=== PATIENT | male | born 1970 | race Two or more races ===

== ENCOUNTER 2016-11-14 12:24 | Outpatient (CLI) | payer MEDICARE, MEDICAID ==
[2016-11-14 19:04] LABS: BASOPHILS % (AUTO) 0.6 %; EOSINOPHILS # (AUTO) 0.5 10^3/uL (0.0-0.7); EOSINOPHILS % (AUTO) 6.1 %; HCT - HEMATOCRIT 44.6 % (42.0-52.0); HGB - HEMOGLOBIN 15.1 g/dL (14.0-18.0); LYMPHOCYTES # (AUTO) 2.6 10^3/uL (1.5-3.5); LYMPHOCYTES % (AUTO) 35.7 %; MEAN CORPUSCULAR HEMOGLOBIN 29.5 pg (27.0-31.0); MEAN CORPUSCULAR VOLUME 86.9 fL (80.0-94.0); MEAN PLATELET VOLUME 9.4 fL (7.4-11.4); MONOCYTES # (AUTO) 0.8 10^3/uL (0.0-1.0); MONOCYTES % (AUTO) 10.3 %; NEUTROPHILS # (AUTO) 3.5 10^3/uL (1.5-6.6); NEUTROPHILS % (AUTO) 47.3 %; RED BLOOD COUNT 5.13 10^6/uL (4.70-6.10); RED CELL DISTRIBUTION WIDTH 14.4 % (12.0-15.0); UNCORRECTED WHITE BLOOD COUNT 7.4 x10^3/uL; WHITE BLOOD COUNT 7.4 x10^3/uL (4.8-10.8)
[2016-11-14 19:21] LABS: ALBUMIN/GLOBULIN RATIO 1.4 (1.0-2.2); BUN - BLOOD UREA NITROGEN 17 mg/dL (6-20); CALCIUM 9.7 mg/dL (8.5-10.3); CARBON DIOXIDE - CO2 29 mmol/L (21-32); CHLORIDE 100 mmol/L (101-111); CHOL/HDL RATIO 3.4 (<5.0); CHOLESTEROL 221 mg/dL; CREATININE 1.3 mg/dL (0.6-1.2); GFR - MDRD 60 (>89); GLUCOSE 94 mg/dL (70-100); HDL CHOLESTEROL 65 mg/dL; LDL/HDL RATIO 2.2 (<3.6); POTASSIUM 4.8 mmol/L (3.5-5.0); SODIUM 137 mmol/L (135-145); TOTAL PROTEIN 7.7 g/dL (6.7-8.2); TRIGLYCERIDES 71 mg/dL; VLDL CHOLESTEROL 14 mg/dL
== END 2016-11-14 12:25 | disposition home or self-care (01) ==
LOC: LAB.N 12:24
PROVIDERS: ATTEND Family Medicine
DX: F17.210 Nicotine dependence, cigarettes, uncomplicated (principal); F20.9 Schizophrenia, unspecified; F31.9 Bipolar disorder, unspecified; Z79.899 Other long term (current) drug therapy
CPT/HCPCS: 36415; 80053; 80061; 84443; 85025

== ENCOUNTER 2018-02-24 12:43 | Emergency (ER) | payer MEDICARE, MEDICAID ==
[2018-02-24 12:55] VITALS: BP 135/89
[2018-02-24] MEDS ORDERED: IBUPROFEN 400 MG TABLET PO STA (14:13)
--- NOTE | 2018-02-24 14:16 | ED Physician Documentation ---
History of Present Illness - Stated complaint Stated Complaint: R KNEE PX-SWELLING - Chief complaint Chief Complaint: Ext Problem - Additonal information Additional information: hx from pt 47 male to ED with R knee pain and swelling no injury recalled no fever Review of Systems Constitutional: denies: Fever Musculoskeletal: reports: Joint pain PD PAST MEDICAL HISTORY - Past Medical History Cardiovascular: None Respiratory: None Endocrine/Autoimmune: None GI: GERD Psych: Bipolar disorder, Schizophrenia - Past Surgical History Past Surgical History: No - Present Medications Home Medications: Ambulatory Orders Medication Instructions Recorded Confirmed lamoTRIgine [LaMICtal] 25 mg PO DAILY 03/09/13 01/29/16 Aripiprazole [Abilify] 10 mg PO 03/22/13 03/22/13 raNITIdine [Zantac] 150 mg PO DAILY 01/29/16 01/29/16 Ibuprofen [Motrin] 400 mg PO Q6H PRN #20 tablet 02/24/18 - Allergies Allergies/Adverse Reactions: Allergies Allergy/AdvReac Type Severity Reaction Status Date / Time No Known Drug Allergies Allergy Verified 02/24/18 12:51 - Social History Does the pt smoke?: No Smoking Status: Never smoker Does the pt drink ETOH?: No Does the pt have substance abuse?: No - Immunizations Immunizations are current?: No Immunizations: TDAP >10years/unknown - POLST Patient has POLST: No PD ED PE NORMAL - Vitals Vital signs reviewed: Yes - Cardiac Cardiac: RRR - Respiratory Respiratory: No respiratory distress, Clear bilaterally - Abdomen Abdomen: Non tender - Extremities Extremities: Other (R knee + swelling, no ACL MCL LCL laxity, no pop or catch with mensical testing, no cord and calf NT, not red or warm, MSV intact to foot) - Neuro Neuro: Alert and oriented X 3 Results - Vitals Vitals: Vital Signs - 24 hr 02/24/18 12:49 Temperature 36.4 C L Heart Rate 76 Respiratory 14 Rate Blood Pressure 135/89 H O2 Saturation 100 Oxygen O2 Source Room air - Rads (name of study) knee Radiology: See rad report (small effusion) PD MEDICAL DECISION MAKING - ED course ED course: exam not suggesting of septic joint or gout or DVT will xray to assess for effusion likely dc with NSAID SETH ice elev crutches Departure - Departure Disposition: 01 Home, Self Care Clinical Impression: Knee pain, right Qualifiers: Chronicity: acute Qualified Code(s): M25.561 - Pain in right knee Condition: Good Instructions: ED Knee Pain UKO Follow-Up: Rizwan Kenney MD [Primary Care Provider] - Prescriptions: Ibuprofen [Motrin] 400 mg PO Q6H PRN #20 tablet PRN Reason: Pain Comments: Your history and exam do not suggest a knee infection, gout, or a blood clot. The xray results are not back yet but you can call me in about an hour at Recommend you can go home with motrin for pain and inflammation, and SETH wrap for support, ice for 20 minutes at a time 3 X a day and crutches as needed to decrease weight bearing stress Return if worse Discharge Date/Time: 02/24/18 15:03
--- NOTE | 2018-02-24 15:17 | XRAY Report ---
Reason: knee pain and swelling Procedure Date: 02/24/2018 Accession Number: [id number] / [id number] Procedure: XR - Knee 4 View RT CPT Code: FULL RESULT: EXAM: RIGHT KNEE RADIOGRAPHY EXAM DATE: 02/24/2018 02:29 PM. CLINICAL HISTORY: Knee pain and swelling since yesterday. COMPARISON: None. TECHNIQUE: 4 views. FINDINGS: Bones: Normal. No fractures or bone lesions. Joints: Small effusion. Normal caliber compartments without bony reactive changes. Bones in anatomic alignment. Soft Tissues: Normal. No soft tissue swelling. IMPRESSION: Small effusion. RADIA
== END 2018-02-24 15:03 | disposition home or self-care (01) ==
LOC: ED 12:43
DX: M25.561 Pain in right knee (principal); M25.461 Effusion, right knee
CPT/HCPCS: 99282; 99283

== ENCOUNTER 2018-05-25 08:00 | Outpatient (CLI) | payer MEDICARE, MEDICAID ==
[2018-05-25 13:51] LABS: CALCIUM 9.3 mg/dL (8.5-10.3); CREATININE 1.2 mg/dL (0.6-1.2)
[2018-05-25 14:07] LABS: PSA FREE 0.031 ng/mL (0.16-2.81)
[2018-05-25 14:08] LABS: PSA TOTAL 0.221 ng/mL (0.000-2.000)
== END 2018-05-25 23:59 | disposition home or self-care (01) ==
LOC: LAB.N 08:00
PROVIDERS: ATTEND Physician Assistant Medical
DX: R35.0 Frequency of micturition (principal)
CPT/HCPCS: 36415; 80048; 84153; 84154

== ENCOUNTER 2018-07-07 08:00 | Outpatient (CLI) | payer MEDICARE, MEDICAID ==
[2018-07-07 19:24] LABS: CHOLESTEROL 216 mg/dL; HDL CHOLESTEROL 72 mg/dL; LDL CHOLESTEROL,CALCULATED 134 mg/dL; LDL/HDL RATIO 1.9 (<3.6); VLDL CHOLESTEROL 10 mg/dL
== END 2018-07-07 08:01 | disposition home or self-care (01) ==
LOC: LAB.N 08:00
PROVIDERS: ATTEND Physician Assistant Medical
DX: E78.5 Hyperlipidemia, unspecified (principal)
CPT/HCPCS: 36415; 80061; 83721

== ENCOUNTER 2018-11-06 12:57 | Outpatient (CLI) | payer MEDICARE, MEDICAID | END 2018-11-06 12:58 | disposition home or self-care (01) | LOC: RT 12:57 | PROVIDERS: ATTEND Physician Assistant Medical | DX: R06.2 Wheezing (principal); R06.00 Dyspnea, unspecified | CPT/HCPCS: 94010 ==

== ENCOUNTER 2018-12-21 09:11 | Outpatient (CLI) | payer MEDICARE, MEDICAID ==
[2018-12-21 12:34] LABS: CHOL/HDL RATIO 2.6 (<5.0); CHOLESTEROL 208 mg/dL; HDL CHOLESTEROL 79 mg/dL; LDL CHOLESTEROL,CALCULATED 113 mg/dL; LDL/HDL RATIO 1.4 (<3.6); VLDL CHOLESTEROL 16 mg/dL
== END 2018-12-21 23:59 | disposition home or self-care (01) ==
LOC: LAB.N 09:11
PROVIDERS: ATTEND Physician Assistant Medical
DX: E78.5 Hyperlipidemia, unspecified (principal)
CPT/HCPCS: 36415; 80061; 83721

== ENCOUNTER 2019-11-15 08:00 | Outpatient (CLI) | payer MEDICARE, MEDICAID | END 2019-11-15 23:59 | disposition home or self-care (01) | LOC: LAB.WCP 08:00 | PROVIDERS: ATTEND Nurse Practitioner Family | DX: R39.11 Hesitancy of micturition (principal) | CPT/HCPCS: 36415; 84153 ==

== ENCOUNTER 2019-12-21 08:50 | Outpatient (CLI) | payer MEDICARE, MEDICAID ==
[2019-12-21 12:30] LABS: BASOPHILS # (AUTO) 0.1 10^3/uL (0.0-0.1); BASOPHILS % (AUTO) 0.8 %; EOSINOPHILS # (AUTO) 0.5 10^3/uL (0.0-0.7); EOSINOPHILS % (AUTO) 7.7 %; HGB - HEMOGLOBIN 13.5 g/dL (14.0-18.0); LYMPHOCYTES # (AUTO) 3.2 10^3/uL (1.5-3.5); LYMPHOCYTES % (AUTO) 48.7 %; MEAN CORPUSCULAR HEMOGLOBIN 29.5 pg (27.0-31.0); MEAN CORPUSCULAR HGB CONC 34.4 g/dL (32.0-36.0); MEAN CORPUSCULAR VOLUME 85.8 fL (80.0-94.0); MONOCYTES # (AUTO) 0.6 10^3/uL (0.0-1.0); MONOCYTES % (AUTO) 8.9 %; NEUTROPHILS # (AUTO) 2.2 10^3/uL (1.5-6.6); NEUTROPHILS % (AUTO) 33.7 %; PLT - PLATELET COUNT 280 10^3/uL (130-450); RED BLOOD COUNT 4.58 10^6/uL (4.70-6.10); RED CELL DISTRIBUTION WIDTH 13.3 % (12.0-15.0); WHITE BLOOD COUNT 6.6 x10^3/uL (4.8-10.8)
[2019-12-21 12:34] LABS: ALBUMIN 3.9 g/dL (3.2-5.5); ALBUMIN/GLOBULIN RATIO 1.4 (1.0-2.2); ALKALINE PHOSPHATASE 39 IU/L (42-121); ALT ALANINE AMINOTRANSFERASE 20 IU/L (10-60); AST ASPARTATE AMINOTRANSFERASE 15 IU/L (10-42); BILIRUBIN,TOTAL 0.9 mg/dL (0.2-1.0); BUN - BLOOD UREA NITROGEN 13 mg/dL (6-20); CALCIUM 9.7 mg/dL (8.5-10.3); CARBON DIOXIDE - CO2 30 mmol/L (21-32); CHLORIDE 103 mmol/L (101-111); CHOLESTEROL 188 mg/dL; CREATININE 1.2 mg/dL (0.6-1.2); GLUCOSE 94 mg/dL (70-100); HDL CHOLESTEROL 63 mg/dL; LDL CHOLESTEROL,CALCULATED 109 mg/dL; LDL/HDL RATIO 1.7 (<3.6); SODIUM 140 mmol/L (135-145); TOTAL PROTEIN 6.7 g/dL (6.7-8.2); VLDL CHOLESTEROL 16 mg/dL
== END 2019-12-21 23:59 | disposition home or self-care (01) ==
LOC: LAB.WCP 08:50
PROVIDERS: ATTEND Nurse Practitioner Family
DX: I10 Essential (primary) hypertension (principal); J44.9 Chronic obstructive pulmonary disease, unspecified; E78.5 Hyperlipidemia, unspecified; Z79.899 Other long term (current) drug therapy
CPT/HCPCS: 36415; 80053; 80061; 83721; 84443; 85025

== ENCOUNTER 2020-12-22 08:00 | Outpatient (CLI) | payer MEDICARE, MEDICAID ==
[2020-12-22 12:09] LABS: BASOPHILS # (AUTO) 0.1 10^3/uL (0.0-0.1); BASOPHILS % (AUTO) 0.8 %; EOSINOPHILS # (AUTO) 0.4 10^3/uL (0.0-0.7); EOSINOPHILS % (AUTO) 5.9 %; HCT - HEMATOCRIT 41.6 % (42.0-52.0); HGB - HEMOGLOBIN 14.7 g/dL (14.0-18.0); LYMPHOCYTES # (AUTO) 2.7 10^3/uL (1.5-3.5); LYMPHOCYTES % (AUTO) 41.2 %; MEAN CORPUSCULAR HEMOGLOBIN 30.2 pg (27.0-31.0); MEAN CORPUSCULAR HGB CONC 35.3 g/dL (32.0-36.0); MEAN CORPUSCULAR VOLUME 85.4 fL (80.0-94.0); MEAN PLATELET VOLUME 11.2 fL (7.4-11.4); MONOCYTES # (AUTO) 0.6 10^3/uL (0.0-1.0); MONOCYTES % (AUTO) 8.6 %; NEUTROPHILS # (AUTO) 2.9 10^3/uL (1.5-6.6); NEUTROPHILS % (AUTO) 43.2 %; PLT - PLATELET COUNT 285 10^3/uL (130-450); RED BLOOD COUNT 4.87 10^6/uL (4.70-6.10); RED CELL DISTRIBUTION WIDTH 13.2 % (12.0-15.0); WHITE BLOOD COUNT 6.6 x10^3/uL (4.8-10.8)
[2020-12-22 12:26] LABS: ALBUMIN/GLOBULIN RATIO 1.3 (1.0-2.2); ALKALINE PHOSPHATASE 47 IU/L (42-121); ALT ALANINE AMINOTRANSFERASE 29 IU/L (10-60); AST ASPARTATE AMINOTRANSFERASE 21 IU/L (10-42); BILIRUBIN,TOTAL 0.5 mg/dL (0.2-1.0); BUN - BLOOD UREA NITROGEN 15 mg/dL (6-20); CALCIUM 9.3 mg/dL (8.5-10.3); CARBON DIOXIDE - CO2 28 mmol/L (21-32); CHLORIDE 99 mmol/L (101-111); CHOL/HDL RATIO 3.2 (<5.0); CHOLESTEROL 198 mg/dL; CREATININE 1.3 mg/dL (0.6-1.2); GFR - MDRD 59 (>89); GLUCOSE 98 mg/dL (70-100); HDL CHOLESTEROL 62 mg/dL; LDL CHOLESTEROL,CALCULATED 121 mg/dL; SODIUM 139 mmol/L (135-145); TOTAL PROTEIN 7.2 g/dL (6.7-8.2); TRIGLYCERIDES 74 mg/dL; VLDL CHOLESTEROL 15 mg/dL
[2020-12-22 12:39] LABS: THYROID STIMULATING HORMONE 2.69 uIU/mL (0.34-5.60)
== END 2020-12-22 23:59 | disposition home or self-care (01) ==
LOC: LAB.WCP 08:00
PROVIDERS: ATTEND Family Medicine
DX: I10 Essential (primary) hypertension (principal); E78.5 Hyperlipidemia, unspecified
CPT/HCPCS: 36415; 80053; 80061; 83721; 84443; 85025

== ENCOUNTER 2021-02-01 10:26 | Outpatient (CLI) | payer MEDICARE, MEDICAID ==
--- NOTE | 2021-02-01 13:15 | PROCEDURE REPORT ---
Hospitalist Procedure Note - Procedure Note Procedure Note: February 01, 2021 Service time: 11 AM Ordering provider Liza Irby Indication for test: Chest pain at rest Significant medical history: He is a 48-year-old white male who is fully in dependent, no disability. He bicycles to work 1 mile there. Will stop. Bicycle for the rest of the way. And repeat that on the way home from work. This is on a daily basis Friday through Friday. A year to a year and a half ago, he began having fleeting chest pain. It last less than a second. He describes it as a pressure-like sensation, occasionally sharp. Nonradiating. No nausea, diaphoresis, palpitations, left arm pain or jaw pain. There is no rhyme or reason to the pain. It can happen at rest, while bicycling, watching TV, standing cooking, etc. In addition to chest pain, he is finding himself more more short of breath with exertion over the last 2 to 3 years. For instance he used to be able to bike all the way to work without stopping. Now he has to stop after 1 mile. No orthopnea, edema, cough, chest congestion. He does endorse a significant history of reflux disease for decades for which he takes daily Tums. He states that years ago he used to take histamine blockers but was told that you can get "esophageal cancer from him" so he weaned himself off. But he has frequent indigestion, belching on a daily basis. Of note the patient has a muted affect. Flat. At times expressed annoyance at this entire process. From scheduling, to being reminded about it, to getting on a treadmill. He several times stated "it does not matter". When I asked him why it did not matter he tells me "that he might as well be , it does not matter". He tells me that if he on the treadmill it would not be "a bad thing". Cardiac risk factors: He smokes half a pack to three-quarter pack per day for the last 30 years. He states that previous primary care providers have told him that he needs to stop smoking. He states he has slight hypertension. Did try to take medications 4 to 6 months ago. But after a week he was so short of breath that he could not even walk across a room that he stopped taking the medication. He does not have d iabetes, hypertension, hyperlipidemia, or a family history of heart disease. He does have emphysema/asthma. Takes albuterol and Flovent for years. Diagnosed with COPD 3 years ago. Type of stress test: ETT with echocardiograph Procedure: Exercise treadmill test After signing informed consent, the patient underwent resting echo imaging and then performed treadmill exercise using a Tan protocol. The patient exercised for 3 minutes and 53 seconds and achieved a peak heart rate of 133 (77% predicted maximum heart rate for age) and an estimated workload of 5.68 METS. The test was terminated due to severe shortness of breath, hamstring pain, and back pain that occurred before achieving target heart rate. Rhythm during exercise: Sinus without any ectopy. Of note there is artifact and there is intermittent vertical spikes that go off of the EKG due to equipment. The factory focus technician did attempt to see if we could eliminate some of the spikes but they still came and went during exercise. Symptoms: Patient developed shortness of breath within 2 minutes of exercise with a level of severity to 16. No chest pain. No arm pain. He also developed severe hamstring pain. States that his legs were "burning", which is a new problem with exertion over the last few months. O2 sat was 94% at peak exercise. Peak blood pressure was 201/104. EKG at rest showed normal sinus rhythm with high voltage. Patient has a narrow AP diameter chest. Slight ST elevation in almost all leads with probable early repolarization pattern. EKG at peak stress showed upsloping ST elevation in almost all leads, but not meeting diagnostic criteria for ischemia. In recovery, heart rate returned to baseline within a minute and 30 seconds. However blood pressure was 242/96. Blood pressure came down to 193/95 at 3 minutes 30 seconds. Prior to stress, blood pressure at baseline was 134/94. Echo imaging performed at rest and with stress revealed Nondiagnostic study due to inadequate heart rate response and stopping due to hamstring pain. Normal chamber sizes and function with no evidence or prior infarction or ischemia in the low workload achieved. Pulmonary pressures could not be measured. See separate report dictated by cardiology for more detail. There was no ventricular hypertrophy noted and no elevated pulmonary pressures. Enma Fall MD, was present throughout the treadmill stress study and supervised it in its entirety. Summary: 1. Exercise tolerance reduced for age as evidenced by attainment of mets. 2. Abnormal EKG at rest with voltage criteria and diffuse ST elevation with repolarization changes. But not diagnostic for coronary disease. 3. Inadequate level of exercise achieved on this treadmill stress 4. Exaggerated blood pressure response to exercise 5. Ischemic changes by EKG were not seen at peak stress 5. Anhedonia and statements regarding possibility of being acceptable indicate possible level of depression. Conclusions: 1. Nondiagnostic Tan protocol stress test with nondiagnostic ST changes, they do not meet diagnostic criteria for ischemia. However this patient was not able to achieve peak heart rate. 2. Severe hypertensive response and shortness of breath with leg burning. I would recommend arterial brachial indices to evaluate for possible peripheral v ascular disease. 3. History of significant dyspepsia and reflux may indicate need for esophageal manometry and EGD. 4. Risk factors and severe hypertensive response should be followed up with nuclear medicine Lexiscan stress test.
== END 2021-02-01 10:27 | disposition home or self-care (01) ==
LOC: DI 10:26
PROVIDERS: ATTEND Family Medicine
DX: R07.9 Chest pain, unspecified (principal); I10 Essential (primary) hypertension; F17.210 Nicotine dependence, cigarettes, uncomplicated; J43.9 Emphysema, unspecified; R94.31 Abnormal electrocardiogram [ECG] [EKG]; R45.84 Anhedonia
CPT/HCPCS: 93016; 93017; 93018; 93350

== ENCOUNTER 2021-12-14 08:30 | Emergency (ER) | payer MEDICARE, MEDICAID ==
[2021-12-14 08:46] VITALS: BP 148/97
[2021-12-14] MEDS ORDERED: LIDOCAINE PATCH 5% TOP STA (09:01)
[2021-12-14] MEDS ORDERED: HYDROcod/ACETAM 5/325 MG TABLET PO STA (09:01)
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
== END 2021-12-14 09:30 | disposition home or self-care (01) ==
LOC: ED 08:30
DX: S39.012A Strain of muscle, fascia and tendon of lower back, initial encounter (principal); X50.9XXA Other and unspecified overexertion or strenuous movements or postures, initial encounter; Y93.89 Activity, other specified
CPT/HCPCS: 99282; 99283; A9270

== ENCOUNTER 2021-12-19 17:02 | Emergency (ER) | payer MEDICARE, MEDICAID ==
[2021-12-19] MEDS ORDERED: oxyCODONE 5 MG TABLET PO STA (17:52)
--- NOTE | 2021-12-19 17:53 | ED Physician Documentation ---
PD HPI BACK PAIN - Stated complaint Stated Complaint: BACK PX - Chief complaint Chief Complaint: Back Pain - History obtained from History obtained from: Patient - Additional information Additional information: 51-year-old gentleman seen here couple weeks ago by my partner for sciatica. Now pain is over his kidneys and he worries abotu kidney problem. Pain does worsen if he bends over and twists. There are no urinary complaints such as hematuria or frequency or urgency. He denies weakness, numbness, tingling in the legs or saddle anesthesia. No incontinence or fevers. Review of Systems Constitutional: reports: Reviewed and negative Eyes: reports: Reviewed and negative Ears: reports: Reviewed and negative Cardiac: reports: Reviewed and negative Respiratory: reports: Reviewed and negative PD PAST MEDICAL HISTORY - Past Medical History Past Medical History: Yes Cardiovascular: Coronary artery disease Respiratory: None Neuro: None Endocrine/Autoimmune: None GI: GERD : None HEENT: None Psych: Bipolar disorder, Schizophrenia Musculoskeletal: None Derm: None - Past Surgical History Past Surgical History: No - Present Medications Home Medications: Ambulatory Orders Medication Instructions Recorded Confirmed lamoTRIgine [LaMICtal] 25 mg PO DAILY 03/09/13 12/19/21 Aripiprazole [Abilify] 10 mg PO DAILY 03/22/13 12/19/21 Ibuprofen [Motrin] 400 mg PO Q6H PRN #20 tablet 02/24/18 12/19/21 Acyclovir 400 mg PO DAILY 12/19/21 12/19/21 Ibuprofen [Motrin] 600 mg PO Q6HR PRN 12/19/21 12/19/21 Oxycodone HCl/Acetaminophen 1 - 2 each PO Q6H PRN #14 tablet 12/19/21 [Percocet 5-325 mg Tablet] lamoTRIgine [Lamictal Xr] 100 mg PO DAILY PM 12/19/21 12/19/21 - Allergies Allergies/Adverse Reactions: Allergies Allergy/AdvReac Type Severity Reaction Status Date / Time No Known Drug Allergies Allergy Verified 12/19/21 17:20 - Social History Does the pt smoke?: No Smoking Status: Never smoker Does the pt drink ETOH?: No Does the pt have substance abuse?: No - Immunizations Immunizations are current?: No Immunizations: TDAP >10years/unknown - POLST Patient has POLST: No PD ED PE NORMAL - Vitals Vital signs reviewed: Yes - General General: Alert and oriented X 3, No acute distress - Back Back: Other (Muscular tenderness of the paralumbar muscles bilaterally without midline spinal tenderness.) - Extremities Extremities: Other (The patient has equal and normal Achilles and patellar reflexes bilaterally. Normal sensation in all areas of the legs. Patient denies saddle anesthesia. Normal strength in flexion-extension at the ankles, knees, and flexion of the hips.) - Neuro Neuro: Alert and oriented X 3, Normal speech Results - Vitals Vitals: Vital Signs - 24 hr 12/19/21 12/19/21 17:15 19:12 Temperature 36.5 C 36.5 C Heart Rate 99 94 Respiratory 16 16 Rate Blood Pressure 146/111 H 140/78 H O2 Saturation 100 98 Oxygen O2 Source Room air - Labs Labs: Laboratory Tests 12/19/21 18:37 Urine Color YELLOW Urine Clarity CLEAR Urine pH 6.0 Ur Specific [place] >=1.030 H Urine Protein NEGATIVE Urine Glucose (UA) NEGATIVE Urine Ketones NEGATIVE Urine Occult Blood NEGATIVE Urine Nitrite NEGATIVE Urine Bilirubin NEGATIVE Urine Urobilinogen 0.2 (NORMAL) Ur Leukocyte Esterase NEGATIVE Ur Microscopic Review NOT INDICATED Urine Culture Comments NOT INDICATED PD MEDICAL DECISION MAKING - ED course ED course: 51-year-old with what seems like muscular back pain. He was specifically con cerned about his kidneys and urinalysis was done without pertinent positive findings i.e., no blood or infection. This patient has seemingly uncomplicated musculoskeletal back pain. The patient has no "red flags." Specifically denies IV drug use, fevers, incontinence, saddle anesthesia. Spinal epidural abscess was considered, given that the patient has no fever, is not diabetic, has no spinal tenderness, does not use IV drugs, and has no bilateral neurologic symptoms, the diagnosis of spinal epidural abscess is considered exceedingly unlikely. Departure - Departure Disposition: 01 Home, Self Care Clinical Impression: Back pain Condition: Good Instructions: ED Low Back Pain Injury Prescriptions: Oxycodone HCl/Acetaminophen [Percocet 5-325 mg Tablet] 1 - 2 each PO Q6H PRN #14 tablet PRN Reason: pain Comments: Your urine is normal without evidence of kidney disease. I sent your prescription electronically to [facility] in [place]. Call your doctor to arrange a follow-up appointment, make the next available appointment. In the interim, return anytime if worse or if new symptoms develop. I am prescribing a short course of narcotic pain medication for you. These are potentially dangerous and addictive medications that should be used carefully. These medications may constipate you. Take an joic-mbe-nuxkwue stool softener (docusate) twice daily with plenty of water while taking these medications. If you go 24 hours without a bowel movement, take caxp-cca-ihzqoxn miralax, per package instructions. Do not drink or drive while taking these medications. If you received narcotic or sedating medications while in the emergency department, do not drive for 24 hours. Store this medication in a safe, secure place and out of reach of children. It is a violation of federal law to give or sell this medication to another person or to use in a manner other than prescribed. The ED will not refill narcotic prescriptions, including prescriptions lost or stolen. To dispose of unwanted medications: 1. [facility] at [address] [facility] in [place] has a medication drop box. They accept prescription medications (in pill form) Friday through Friday 9:00 a.m. to 5:00 p.m. 2. The [facility] accepts prescription medications (in pill form only) for disposal year round. Call for more information. 3. Contact the [facility] for the next [facility] sponsored prescription drug collection event. , [phone], or [phone]; Note that many narcotic pain relievers also contain Tylenol/acetaminophen. Please ensure that your total dose of acetaminophen from all sources does not exceed 3 g (3000 mg) per day. Discharge Date/Time: 12/19/21 19:13
[2021-12-19 18:48] LABS: BILIRUBIN,URINE NEGATIVE (NEGATIVE); GLUCOSE, URINE (UA) NEGATIVE (NEGATIVE); KETONES,URINE (UA) NEGATIVE (NEGATIVE); LEUKOCYTE ESTERASE, URINE NEGATIVE (NEGATIVE); NITRITE,URINE NEGATIVE (NEGATIVE); OCCULT BLOOD,URINE NEGATIVE (NEGATIVE); PROTEIN,URINE NEGATIVE (NEGATIVE); UROBILINOGEN,URINE 0.2 (NORMAL) E.U./dL (NORMAL)
[2021-12-19 18:52] LABS: CLARITY,URINE CLEAR (CLEAR)
[2021-12-19 19:13] VITALS: BP 140/78
== END 2021-12-19 19:13 | disposition home or self-care (01) ==
LOC: ED 17:02
DX: M54.50 Low back pain, unspecified (principal)
CPT/HCPCS: 81003; 99283; A9270; 81001; 87086

== ENCOUNTER 2022-10-07 08:10 | Outpatient (CLI) | payer MEDICARE, MEDICAID ==
[2022-10-07 12:43] LABS: BASOPHILS # (AUTO) 0.1 10^3/uL (0.0-0.1); BASOPHILS % (AUTO) 0.9 %; EOSINOPHILS # (AUTO) 0.5 10^3/uL (0.0-0.7); EOSINOPHILS % (AUTO) 8.2 %; HCT - HEMATOCRIT 41.1 % (42.0-52.0); HGB - HEMOGLOBIN 14.3 g/dL (14.0-18.0); LYMPHOCYTES # (AUTO) 2.6 10^3/uL (1.5-3.5); LYMPHOCYTES % (AUTO) 40.2 %; MEAN CORPUSCULAR HEMOGLOBIN 29.8 pg (27.0-31.0); MEAN CORPUSCULAR HGB CONC 34.8 g/dL (32.0-36.0); MEAN CORPUSCULAR VOLUME 85.6 fL (80.0-94.0); MEAN PLATELET VOLUME 10.8 fL (7.4-11.4); MONOCYTES # (AUTO) 0.5 10^3/uL (0.0-1.0); MONOCYTES % (AUTO) 8.4 %; NEUTROPHILS # (AUTO) 2.7 10^3/uL (1.5-6.6); NEUTROPHILS % (AUTO) 42.1 %; PLT - PLATELET COUNT 271 10^3/uL (130-450); RED CELL DISTRIBUTION WIDTH 13.2 % (12.0-15.0); WHITE BLOOD COUNT 6.3 x10^3/uL (4.8-10.8)
[2022-10-07 13:06] LABS: ALBUMIN 4.2 g/dL (3.2-5.5); ALBUMIN/GLOBULIN RATIO 1.6 (1.0-2.2); ALKALINE PHOSPHATASE 59 IU/L (42-121); ALT ALANINE AMINOTRANSFERASE 34 IU/L (10-60); AST ASPARTATE AMINOTRANSFERASE 20 IU/L (10-42); BILIRUBIN,TOTAL 0.4 mg/dL (0.2-1.0); BUN - BLOOD UREA NITROGEN 15 mg/dL (6-20); CALCIUM 9.4 mg/dL (8.5-10.3); CARBON DIOXIDE - CO2 33 mmol/L (21-32); CHLORIDE 104 mmol/L (101-111); CHOL/HDL RATIO 2.2 (<5.0); CHOLESTEROL 139 mg/dL; CREATININE 1.4 mg/dL (0.6-1.3); GFR - MDRD 53 (>89); GLUCOSE 103 mg/dL (74-104); HDL CHOLESTEROL 63 mg/dL; LDL CHOLESTEROL,CALCULATED 60 mg/dL; SODIUM 140 mmol/L (135-145); TOTAL PROTEIN 6.8 g/dL (6.4-8.9); TRIGLYCERIDES 78 mg/dL (48-352); VLDL CHOLESTEROL 16 mg/dL
[2022-10-07 13:11] LABS: ESTIMATED AVERAGE GLUCOSE 114 mg/dL (70-100); HEMOGLOBIN A1c% 5.6 % (4.27-6.07)
[2022-10-07 13:16] LABS: THYROID STIMULATING HORMONE 3.28 uIU/mL (0.34-5.60)
== END 2022-10-07 08:11 | disposition home or self-care (01) ==
LOC: LAB.N 08:10
PROVIDERS: ATTEND Nurse Practitioner Family
DX: Z00.00 Encounter for general adult medical examination without abnormal findings (principal)
CPT/HCPCS: 36415; 80053; 80061; 83036; 83721; 84153; 84443; 85025

== ENCOUNTER 2023-06-23 07:08 | Outpatient (CLI) | payer MEDICARE ==
[2023-06-23 12:26] LABS: ALBUMIN 4.2 g/dL (3.2-5.5); ALBUMIN/GLOBULIN RATIO 1.4 (1.0-2.2); BILIRUBIN,TOTAL 0.6 mg/dL (0.2-1.0); CALCIUM 10.3 mg/dL (8.5-10.3); CREATININE 1.4 mg/dL (0.6-1.3); POTASSIUM 4.3 mmol/L (3.5-4.5); TOTAL PROTEIN 7.1 g/dL (6.4-8.9)
== END 2023-06-23 07:09 | disposition home or self-care (01) ==
LOC: LAB.N 07:08
PROVIDERS: ATTEND Registered Nurse
DX: N18.31 Chronic kidney disease, stage 3a (principal); Z79.899 Other long term (current) drug therapy
CPT/HCPCS: 36415; 80053; 80175